=== PATIENT | male | born 1960 | race Caucasian/White ===

== ENCOUNTER 2017-06-24 12:06 | Emergency (ER) | payer BC ==
[2017-06-24 16:49] LABS: Hematocrit 46 % (42-52); Hemoglobin 15.8 g/dl (14.0-18.0); Mean Corpuscular HGB Conc 35 g/dl (31-36); Mean Corpuscular Hemoglobin 31 pg (27-31); Mean Corpuscular Volume 91 fL (80-94); Mean Platelet Volume 7 um3 (7.4-10.4); Red Blood Count 5.06 10^6/ul (4.0-5.4); Red Cell Distribution Width 13 % (10.5-15); White Blood Count 7.3 10^3/ul (3.5-10.8)
--- NOTE | 2017-06-24 16:58 | RAD ---
Indication: Hand numbness. CT of the cervical spine was obtained in the axial plane. Sagittal and coronal reconstructed images were obtained. The skull base demonstrates no fracture. Mastoid air cells are well aerated. The C1 ring is intact. There is no evidence of fracture. At C2-C3 minimal degenerative disc disease is noted. No central foraminal stenosis is noted. At C3-C4 minimal spondylitic ridge is noted. No central foraminal stenosis is noted. At C4-C5, C5-C6 no disc protrusion is identified. No central foraminal stenosis is noted. At C6-C7 spondylitic ridge flattens the thecal sac. Left uncovertebral joint hypertrophy narrows the left foramen. At C7-T1 and T1-T2 the disc space is unremarkable. IMPRESSION: No fracture is identified. 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 No fracture is identified.
[2017-06-24 17:07] LABS: ALT 25 U/L (7-52); AST 16 U/L (13-39); Albumin 4.3 g/dL (3.2-5.2); Alkaline Phosphatase 52 U/L (34-104); Anion Gap 3 mmol/L (2-11); BUN/Creatinine Ratio 19.5 (8-20); Blood Urea Nitrogen 17 mg/dL (6-24); C Reactive Protein < 1.00 mg/L (< 5.00); CO2 Carbon Dioxide 31 mmol/L (22-32); Calcium 9.1 mg/dL (8.6-10.3); Chloride 101 mmol/L (101-111); EGFR African American 117.2 (>60); EGFR Non-African American 91.1 (>60); Globulin 2.6 g/dL (2-4); Glucose 91 mg/dL (70-100); Sodium 135 mmol/L (133-145); Total Protein 6.9 g/dL (6.4-8.9)
[2017-06-24 17:35] VITALS: BP 121/76
--- NOTE | 2017-06-26 11:10 | ED ---
Branden Ch Benjamin, scribed for Billy Paiz MD on 06/24/17 at 1619 . Neurological HPI - HPI Summary HPI Summary: 57yo male c/o sudden onset of numbness in his left thumb and index finger and palm today after using his hand at work. Pt woke up today without any symptoms and numbness only started later today at work. Not particularly heavy lifting and exertion, just normal daily use. Pt has been taking steroid until last Saturday for tennis elbow on the left arm. Pt also reports neck tightness. Hx of similar numbness symptoms in his left arm and right foot before. FHx of PR, CAD, and blood clots. 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 - Onset/Duration: Sudden Onset, Started hours ago, Still Present Timing: Constant Onset Severity: Mild Current Severity: Mild Neurological Deficit Location: LUE - left hand Pain Intensity: 0 Pain Scale Used: 0-10 Numeric Character: Numbness/Tingling - left hand numbness, Other: - neck tightness - Allergy/Home Medications Allergies/Adverse Reactions: Allergies Allergy/AdvReac Type Severity Reaction Status Date / Time No Known Allergies Allergy Verified 06/24/17 12:15 PMH/Surg Hx/FS Hx/Imm Hx Endocrine/Hematology History: Denies: Hx Diabetes, Hx Thyroid Disease Cardiovascular History: Denies: Hx Hypertension Respiratory History: Denies: Hx Asthma, Hx Chronic Obstructive Pulmonary Disease (COPD) GI History: Denies: Hx Ulcer Musculoskeletal History: Reports: Other Musculoskeletal History - tennis elbow, left arm - Surgical History Surgery Procedure, Year, and Place: right shoulder surgery. knee scope for meniscus tear Infectious Disease History: No Infectious Disease History: Denies: Hx Clostridium Difficile, Hx Hepatitis, Hx Human Immunodeficiency Virus (HIV), Hx of Known/Suspected MRSA, Hx Shingles, Hx Tuberculosis, History Other Infectious Disease, Traveled Outside the [place] in Last 30 Days - Family History Known Family History: Positive: Cardiac Disease, Hypertension, Blood Disorder - blood clots - Social History Alcohol Use: Weekly Substance Use Type: Reports: None Smoking Status (MU): Never Smoked Tobacco Review of Systems Constitutional: Negative Eyes: Negative ENT: Negative Cardiovascular: Negative Respiratory: Negative Gastrointestinal: Negative Genitourinary: Negative Positive: Other - neck stiffness Skin: Negative Positive: Numbness - Left hand and fingers Psychological: Normal All Other Systems Reviewed And Are Negative: Yes Physical Exam Triage Information Reviewed: Yes Vital Signs On Initial Exam: Initial Vitals Temp Pulse Resp BP Pulse Ox 97.8 F 82 16 101/85 99 06/24/17 12:15 06/24/17 12:15 06/24/17 12:15 06/24/17 12:15 06/24/17 12:15 Vital Signs Reviewed: Yes Appearance: Positive: Well-Appearing, No Pain Distress, Well-Nourished Skin: Positive: Warm, Skin Color Reflects Adequate Perfusion, Dry Head/Face: Positive: Normal Head/Face Inspection Eyes: Positive: Normal, EOMI ENT: Positive: Normal ENT inspection, Hearing grossly normal Neck: Positive: Supple, Nontender Respiratory/Lung Sounds: Positive: Clear to Auscultation, Breath Sounds Present Cardiovascular: Positive: RRR, Pulses are Symmetrical in both Upper and Lower Extremities Abdomen Description: Positive: Nontender, Soft Bowel Sounds: Positive: Present Musculoskeletal: Positive: Strength/ROM Intact Neurological: Positive: Sensory/Motor Intact - 2+ discrimination in sensation to light touch and pin point in left hard and fingers., Alert, Oriented to Person Place, Time Psychiatric: Positive: Affect/Mood Appropriate Diagnostics - Vital Signs Vital Signs Temp Pulse Resp BP Pulse Ox 06/24/17 12:15 97.8 F 82 16 101/85 99 - Laboratory Lab Results: Lab Results 06/24/17 06/24/17 Range/Units 16:40 16:40 WBC 7.3 (3.5-10.8) 10^3/ul RBC 5.06 (4.0-5.4) 10^6/ul Hgb 15.8 (14.0-18.0) g/dl Hct 46 (42-52) % MCV 91 (80-94) fL MCH 31 (27-31) pg MCHC 35 (31-36) g/dl RDW 13 (10.5-15) % Plt Count 229 (150-450) 10^3/ul MPV 7 L (7.4-10.4) um3 Neut % (Auto) 61.6 (38-83) % Lymph % (Auto) 26.9 (25-47) % Collier % (Auto) 7.8 (1-9) % Eos % (Auto) 2.7 (0-6) % Baso % (Auto) 1.0 (0-2) % Absolute Neuts (auto) 4.5 (1.5-7.7) 10^3/ul Absolute Lymphs (auto) 2.0 (1.0-4.8) 10^3/ul Absolute Monos (auto) 0.6 (0-0.8) 10^3/ul Absolute Eos (auto) 0.2 (0-0.6) 10^3/ul Absolute Basos (auto) 0.1 (0-0.2) 10^3/ul Absolute Nucleated RBC 0 10^3/ul Nucleated RBC % 0 Sodium 135 (133-145) mmol/L Potassium 4.0 (3.5-5.0) mmol/L Chloride 101 (101-111) mmol/L Carbon Dioxide 31 (22-32) mmol/L Anion Gap 3 (2-11) mmol/L BUN 17 (6-24) mg/dL Creatinine 0.87 (0.67-1.17) mg/dL Est GFR ( Amer) 117.2 (>60) Est GFR (Non-Af Amer) 91.1 (>60) BUN/Creatinine Ratio 19.5 (8-20) Glucose 91 (70-100) mg/dL Calcium 9.1 (8.6-10.3) mg/dL Total Bilirubin 0.90 (0.2-1.0) mg/dL AST 16 (13-39) U/L ALT 25 (7-52) U/L Alkaline Phosphatase 52 (34-104) U/L Troponin I 0.00 (<0.04) ng/mL C-Reactive Protein < 1.00 (< 5.00) mg/L Total Protein 6.9 (6.4-8.9) g/dL Albumin 4.3 (3.2-5.2) g/dL Globulin 2.6 (2-4) g/dL Albumin/Globulin Ratio 1.7 (1-3) Result Diagrams: 06/24/17 16:40 06/24/17 16:40 Lab Statement: Any lab studies that have been ordered have been reviewed, and results considered in the medical decision making process. - CT CT C-spine CT Interpretation: No Acute Changes - IMPRESSION: No fracture is identified. 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 No fracture is identified. CT Interpretation Completed By: Radiologist - ED physician has reviewed this radiology report and agrees. - EKG 1300. Cardiac Rate: NL - 71bpm EKG Rhythm: Sinus Rhythm ST Segment: Normal Ectopy: None Re-Evaluation - Re-Evaluation First Eval Re-Evaluation Time: 17:29 Comment: Reviewed pt's imaging and lab results with the pt. Course/Dx - Course Course Of Treatment: Mr. Hoffman complained of numbness and tingling in his left hand and in his right thumb and index finger. It happened suddenly and now is gradually going away. It has happened before. He has some arthritis in his neck on CT and foraminal narrowing at C5-6 on the left. - Diagnoses Provider Diagnoses: Cervical radiculopathy at C6 Discharge - Discharge Plan Condition: Stable Disposition: HOME Patient Education Materials: Ibuprofen (By mouth), Cervical Radiculopathy (ED) Referrals: Raquel Foreman OLDER ADULT SOCIAL WORK SPECIALIST [Primary Care Provider] - The documentation as recorded by the Branden abraham Benjamin accurately reflects the service I personally performed and the decisions made by me, Billy Paiz MD.
== END 2017-06-24 17:37 | disposition home or self-care (01) ==
LOC: ED 12:06
DX: M54.12 Radiculopathy, cervical region (principal)
CPT/HCPCS: 36415; 72125; 80053; 84484; 85025; 86140; 93005; 99282

== ENCOUNTER 2017-07-24 15:54 | Emergency (ER) | payer BC ==
[2017-07-24 16:14] VITALS: BP 136/77
--- NOTE | 2017-07-24 16:19 | UC ---
Throat Pain/Nasal Arnav HPI - HPI Summary HPI Summary: Pt presents with sinus congestion, mild ST, and dry cough for the past week. Yesterday he developed left eye crust, redness, and drainage. This morning he woke up and his right eye was affected as well with crust, redness, and drainage. He denies vision changes, headache, fever, chills, SOB, chest pain, N/ V/D/C. He wears glasses, but no contacts. - History of Current Complaint Chief Complaint: UCEye Stated Complaint: EYE IRRITATION Time Seen by Provider: 07/24/17 16:19 Hx Obtained From: Patient Onset/Duration: Gradual Onset Severity: Mild Cough: Nonproductive - Allergies/Home Medications Allergies/Adverse Reactions: Allergies Allergy/AdvReac Type Severity Reaction Status Date / Time No Known Allergies Allergy Verified 07/24/17 16:14 PMH/Surg Hx/FS Hx/Imm Hx Previously Healthy: Yes - Surgical History Surgical History: Yes Surgery Procedure, Year, and Place: right shoulder surgery. knee scope for meniscus tear - Family History Known Family History: Positive: Cardiac Disease, Hypertension, Blood Disorder - blood clots - Social History Occupation: Employed Full-time Lives: Alone Alcohol Use: Occasionally Substance Use Type: None Smoking Status (MU): Never Smoked Tobacco - Immunization History Most Recent Tetanus Shot: he states he's had one within 5 years Review of Systems Constitutional: Negative Skin: Negative Eyes: Drainage, Eye Redness ENT: Sore Throat, Sinus Pain/Tenderness Respiratory: Cough Cardiovascular: Negative Gastrointestinal: Negative Neurological: Negative Psychological: Negative All Other Systems Reviewed And Are Negative: Yes Physical Exam Triage Information Reviewed: Yes Appearance: Well-Appearing, Well-Nourished Vital Signs: Initial Vital Signs Temp 96.8 F 07/24/17 16:10 Pulse 82 07/24/17 16:10 Resp 12 07/24/17 16:10 BP 136/77 07/24/17 16:10 Pulse Ox 99 07/24/17 16:10 Vital Signs Reviewed: Yes Eyes: Positive: Conjunctiva Inflamed, Discharge - Mild discharge clear and yellow in color., Other: - EOMI. PERRLA ENT: Positive: Hearing grossly normal, Pharynx normal, Nasal drainage, TMs normal, Sinus tenderness. Negative: Pharyngeal erythema, Nasal congestion, TM bulging, TM dull, TM red, Tonsillar swelling, Tonsillar exudate Neck: Positive: Supple, Nontender, No Lymphadenopathy Respiratory: Positive: Chest non-tender, Lungs clear, Normal breath sounds, No respiratory distress, No accessory muscle use Cardiovascular: Positive: RRR, No Murmur, Pulses Normal Neurological: Positive: Alert Psychological: Positive: Age Appropriate Behavior Skin: Negative: rashes Throat Pain/Nasal Course/Dx - Course Course Of Treatment: B/L conjunctivitis - Ofloxacin. URI - likely viral and pt would like to continue at home conservative measures - Differential Dx/Diagnosis Differential Diagnosis/HQI/PQRI: Influenza, Pharyngitis, URI Provider Diagnoses: B/L conjunctivitis Discharge - Discharge Plan Condition: Stable Disposition: HOME Prescriptions: Ofloxacin 0.3%(Ophth)(Nf) [Ocuflox OPTH 0.3%(NF)] 1 drop BOTH EYES TID #1 btl Patient Education Materials: Conjunctivitis (ED) Referrals: Raquel Foreman NP [Primary Care Provider] - Additional Instructions: 1) Rest and drink plenty of water 2) Mucinex OTC twice a day Your blood pressure was high at todays visit. Please see your primary provider within 4 weeks for recheck and re-evaluation. If you develop a fever, SOB, chest pain, new or worsening symptoms - please call your PCP or go to the ED.
== END 2017-07-24 16:40 | disposition home or self-care (01) ==
LOC: UCEAST 15:54
DX: H10.9 Unspecified conjunctivitis (principal)
CPT/HCPCS: 99212; G0463

== ENCOUNTER 2017-12-02 16:39 | Emergency (ER) | payer BC ==
[2017-12-02 16:53] VITALS: BP 149/86
[2017-12-02] MEDS ORDERED: Albuterol/Ipratropium NEB.SOL* Albuterol 2.5 MG/Ipratropium 0.5 MG 3 ML INH ONE (17:28)
[2017-12-02] MEDS ORDERED: Aspirin Low Dose CHEW TAB* 81 MG PO ONE (17:28)
--- NOTE | 2017-12-02 17:36 | ED ---
HPI Chest Pain - HPI Summary HPI Summary: 57yo otherwise healthy M with complaint of near daily, mostly constant chest pressure for the last 6 months. Prior to that he had it less frequently, but extending out to about 1 year from today. He denies radiation of discomfort and states it is not exertional. This feels like a tightness, or a difficulty getting air in. He was in the process of being checked for asthma in the past for same. 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 No independent risk factors for cardiac dz -- no issues with BP, cholesterol, smoking or diabetes. Family hx is neg for cardiac dz. Had a neg ECG previously. Never had stress test etc. 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 - History of Current Complaint Chief Complaint: UCChestPain Time Seen by Provider: 12/02/17 17:08 Hx Obtained From: Patient Pain Intensity: 2 - Allergy/Home Medications Allergies/Adverse Reactions: Allergies Allergy/AdvReac Type Severity Reaction Status Date / Time No Known Allergies Allergy Verified 12/02/17 16:54 PMH/Surg Hx/FS Hx/Imm Hx Endocrine/Hematology History: Denies: Hx Diabetes, Hx Thyroid Disease Cardiovascular History: Denies: Hx Hypertension Respiratory History: Reports: Hx Seasonal Allergies Denies: Hx Asthma, Hx Chronic Obstructive Pulmonary Disease (COPD) GI History: Denies: Hx Ulcer Musculoskeletal History: Reports: Other Musculoskeletal History - tennis elbow, left arm - Surgical History Surgery Procedure, Year, and Place: right shoulder surgery. knee surgery for meniscus tear Infectious Disease History: No Infectious Disease History: Denies: Hx Clostridium Difficile, Hx Hepatitis, Hx Human Immunodeficiency Virus (HIV), Hx of Known/Suspected MRSA, Hx Shingles, Hx Tuberculosis, History Other Infectious Disease, Traveled Outside the [place] in Last 30 Days - Family History Known Family History: Positive: Cardiac Disease, Hypertension, Blood Disorder - blood clots - Social History Alcohol Use: Occasionally Substance Use Type: Reports: None Smoking Status (MU): Never Smoked Tobacco Review of Systems Constitutional: Negative Eyes: Negative Positive: Chest Pain Positive: Shortness Of Breath, Other - denies cough, hemoptysis, wheezing Gastrointestinal: Negative Musculoskeletal: Negative Skin: Negative Neurological: Negative All Other Systems Reviewed And Are Negative: Yes Physical Exam Triage Information Reviewed: Yes Vital Signs On Initial Exam: Initial Vitals Temp Pulse Resp BP Pulse Ox 37.1 C 76 18 149/86 99 12/02/17 16:46 12/02/17 16:46 12/02/17 16:46 12/02/17 16:46 12/02/17 16:46 Vital Signs Reviewed: Yes Appearance: Positive: Well-Appearing, No Pain Distress, Well-Nourished Skin: Positive: Warm, Skin Color Reflects Adequate Perfusion Head/Face: Positive: Normal Head/Face Inspection Eyes: Positive: Normal ENT: Positive: Normal ENT inspection Neck: Positive: Supple, Nontender Respiratory/Lung Sounds: Positive: Breath Sounds Present, Other - adventicial breath sounds in base of L lung. No rales/rhonchi. Cardiovascular: Positive: RRR, Pulses are Symmetrical in both Upper and Lower Extremities Abdomen Description: Positive: Nontender, No Organomegaly, Soft Bowel Sounds: Positive: Present Musculoskeletal: Positive: Normal, Strength/ROM Intact Neurological: Positive: Normal, Sensory/Motor Intact, Alert, Oriented to Person Place, Time Psychiatric: Positive: Normal Diagnostics - Vital Signs Vital Signs Temp Pulse Resp BP Pulse Ox 12/02/17 16:46 37.1 C 76 18 149/86 99 - Laboratory Lab Statement: Any lab studies that have been ordered have been reviewed, and results considered in the medical decision making process. - Radiology No standard instances Xray Interpretation: No Acute Changes Radiology Interpretation Completed By: ED Physician, Radiologist - EKG No standard instances Cardiac Rate: NL EKG Interpretation: NS rate 65. Nl axis, intervals and ST. Mild J pt elevation in V3. No acute. Re-Evaluation - Re-Evaluation First Eval Re-Evaluation Time: 18:24 Change: Improved - breathing tx resolved sx. Chest Pain Course/Dx - Course Course Of Treatment: Pt with chest tightness/SOB over many years that seems to flare. No formal testing for COPD etc. Not a smoker. Occupational exposures. Had some adventicial breath sounds that resolved with breathing tx. Nl CXR/ECG. HEART Score (without trop) is 1 for age only, ARCENIO 0 (without trop). No risk factors. Tx with steroid, rescue inhaler and Advair to follow. F/U PCP for further testing. - Chest Pain Differential Diagnosis/HQI/PQRI: Acute AK, ACS, Angina, Chest Wall, Lower Respiratory Infection, Pulmonary Edema, Pulmonary Embolism, Other: - COPD/asthma , sarcoid, amyloid - Diagnoses Provider Diagnoses: Atypical chest pain, Reactive airway disease Discharge - Sign-Out/Discharge Documenting (check all that apply): Discharge - Discharge Plan Condition: Good Disposition: HOME Prescriptions: Albuterol inh POWDER (NF) [Proair Respiclick] 2 puff INH Q4H PRN #1 mdi PRN Reason: Sob/Wheezing Fluticasone-Salmeterol 250-50* [Advair Diskus 250-50*] 1 puff INH BID #1 diskus predniSONE TAB* [Deltasone TAB*] 50 mg PO DAILY #4 tab Patient Education Materials: COPD (Chronic Obstructive Pulmonary Disease) (ED) , Chest Pain (ED) Referrals: Raquel Foreman NP [Primary Care Provider] - Additional Instructions: Call your doctor in the morning to follow up -- you will need more testing of your breathing, allergies, and possibly a stress test. Return to ER with severe pain, trouble breathing, worse or other concerns as discussed. - Billing Disposition and Condition Condition: GOOD Disposition: HOME
--- NOTE | 2017-12-02 18:18 | RAD ---
INDICATION: Chest pressure and tightness x1 year COMPARISON: None TECHNIQUE: PA and lateral views of the chest were obtained. FINDINGS: The heart and mediastinum are normal in size and contour. The lungs are grossly clear. There is no evidence of large pleural effusion. Visualized bones are normal for the patient's age. There is no radiographic evidence of free air beneath the diaphragm IMPRESSION: No radiographic evidence of acute cardiopulmonary disease.
== END 2017-12-02 18:45 | disposition home or self-care (01) ==
LOC: UCEAST 16:39
DX: R07.89 Other chest pain (principal); J45.909 Unspecified asthma, uncomplicated; R06.02 Shortness of breath
CPT/HCPCS: 71046; 93005; 99212; A9270-GY; G0463

== ENCOUNTER 2019-04-26 10:36 | Emergency (ER) | payer BC ==
[2019-04-26 11:10] VITALS: BP 116/75
[2019-04-26] MEDS ORDERED: Tetracaine 0.5% OPTH.SOL 4 ML* 1 DROP BTL LEFT EYE ONE (11:49)
[2019-04-26] MEDS ORDERED: Fluorescein Sodium TOPICAL* 1 MG TEST STRIP OPHTHALMIC ONE (11:50)
--- NOTE | 2019-04-26 11:54 | UC ---
Eye Complaint HPI - HPI Summary HPI Summary: Patient is 58 year old male, who present today to the urgent care with left eye foreign body sensation, noticed something in his eye at 4:00 in the morning today , essentially woke up with that. He has pain and increased tearing but no conjunctival redness or discharge He denies any contact lens use - History of Current Complaint Chief Complaint: UCEye Stated Complaint: FB IN EYE Time Seen by Provider: 04/26/19 11:34 Hx Obtained From: Patient Pain Intensity: 8 - Allergies/Home Medications Allergies/Adverse Reactions: Allergies Allergy/AdvReac Type Severity Reaction Status Date / Time No Known Allergies Allergy Verified 04/26/19 11:09 Home Medications: Home Medications Ibuprofen 400 mg PO ONCE PRN 04/26/19 [History Confirmed 04/26/19] PMH/Surg Hx/FS Hx/Imm Hx - Additional Past Medical History Additional PMH: Past Medical History : None Past Surgical History: Right shoulder surgery, knee arthroscopy Family History : non contributory Social History : Occasional alcohol, non smoker, no drug use. Previously Healthy: Yes - Surgical History Surgical History: Yes Surgery Procedure, Year, and Place: right shoulder surgery. knee surgery for meniscus tear - Family History Known Family History: Positive: Cardiac Disease, Hypertension, Blood Disorder - blood clots - Social History Alcohol Use: Occasionally Substance Use Type: None Smoking Status (MU): Never Smoked Tobacco - Immunization History Most Recent Tetanus Shot: he states he's had one within 10 years Review of Systems All Other Systems Reviewed And Are Negative: Yes Constitutional: Positive: Negative Skin: Positive: Negative Eyes: Positive: Other - Foreign body sensation, increased lacrimation ENT: Positive: Negative Respiratory: Positive: Negative Cardiovascular: Positive: Negative Gastrointestinal: Positive: Negative Genitourinary: Positive: Negative Motor: Positive: Negative Neurovascular: Positive: Negative Musculoskeletal: Positive: Negative Neurological: Positive: Negative Psychological: Positive: Negative Is Patient Immunocompromised?: No Physical Exam - Summary Physical Exam Summary: Vital Signs Reviewed: Yes A+Ox3, no distress Eyes: Conjunctiva Clear bilaterally. Increased lacrimation on the left side. No discharge noted. No foreign body identified on brief exam. After local anesthesia with tetracaine, a small plaque brody noted under the upper eyelid. ENT: Hearing grossly normal neck: supple Respiratory: Positive: No respiratory distress, No accessory muscle use Cardiovascular: skin color reflect adequate perfusion Musculoskeletal Exam: RICHARDS x 4 without difficulty Neurological: Positive: Alert, ambulatory without difficulty Psychological: Positive: Normal Response To Family Skin: Positive: no rash, no ecchymosis Triage Information Reviewed: Yes Vital Signs: Initial Vital Signs Temp 97.8 F 04/26/19 11:06 Pulse 75 04/26/19 11:06 Resp 18 04/26/19 11:06 BP 116/75 04/26/19 11:06 Pulse Ox 98 04/26/19 11:06 Vital Signs Reviewed: Yes Procedures - Eye Procedure Left Alcaine Drops Administered: No - tetracaine 0.5% used Eye FB Removal: removal w/ needle Eye Complaint Course/Dx - Course Course Of Treatment: During the visit today, after local anesthesia with 0.5% tetracaine, after flipping the upper eyelid ,a small brody noted on the upper eyelid Under fluorescein stain, under wood's lamp, no corneal abrasion was identified. Using an 18-gauge needle the brody was removed . Emily Avila RN assisted in the procedure. I will prescribe the eyedrops to the pharmacy to prevent any infection. He will follow-up with ophthalmology in 1-2 days if no better Patient expressed understanding . - Differential Dx/Diagnosis Provider Diagnosis: Foreign body of left eyelid Discharge - Sign-Out/Discharge Documenting (check all that apply): Patient Departure All imaging exams completed and their final reports reviewed: No Studies - Discharge Plan Condition: Stable Disposition: HOME Prescriptions: Ciprofloxacin 0.3% OPTH.LESLIE* [Cipro 0.3% Opth*] 1 drop LEFT EYE Q6H 5 Days #1 btl Patient Education Materials: Eye Foreign Body (ED) Referrals: Raquel Foreman NP [Primary Care Provider] - Harvey Murrieta MD [Medical Doctor] - 2 Days Additional Instructions: Please start using eye drops as prescribed to the pharmacy . Follow up with ophthalmology in 1 to 2 days . Return to Urgent care / ER if symptoms get worse. - Billing Disposition and Condition Condition: STABLE Disposition: Home
== END 2019-04-26 12:25 | disposition home or self-care (01) ==
LOC: UCEAST 10:36
DX: T15.82XA Foreign body in other and multiple parts of external eye, left eye, initial encounter (principal); X58.XXXA Exposure to other specified factors, initial encounter; Y92.9 Unspecified place or not applicable
CPT/HCPCS: 67938; 99212; A9270-GY; G0463